=== PATIENT | female | born 1935 | race Caucasian/White ===

== ENCOUNTER 2018-01-29 09:32 | Outpatient (CLI) | payer MEDICARE, OTHER ==
[~2018-01-29] VITALS: Ht 148.6 cm; Wt 66.5 kg
[2018-01-29] MEDS ORDERED: PRAV10TA PO (09:50)
[2018-01-29] MEDS ORDERED: LATA2.5D5 OP (09:50)
[2018-01-29] MEDS ORDERED: CA C1TAB75 PO (09:50)
[2018-01-29] MEDS ORDERED: GABA-488 PO (09:50)
[2018-01-29] MEDS ORDERED: MULT-228 PO (09:50)
[2018-01-29] MEDS ORDERED: GABA-486 PO (09:50)
[2018-01-29] MEDS ORDERED: FERR-84 PO (09:50)
[2018-01-29] MEDS ORDERED: OMEP40CA36 PO (09:50)
[2018-01-29 10:27] LABS: BASOPHILS % (AUTO) 0 % (0-10); EOSINOPHILS # (AUTO) 0.1 10^3/uL (0.0-0.3); EOSINOPHILS % (AUTO) 2 % (0-10); HEMATOCRIT 44 % (35-52); HEMOGLOBIN 14.3 G/DL (11.5-16.0); LYMPHOCYTES # (AUTO) 1.2 X 10^3 (1.0-4.0); LYMPHOCYTES % (AUTO) 23 % (12-44); MEAN CORPUSCULAR HEMOGLOBIN 30 PG (25-34); MEAN CORPUSCULAR HGB CONC 32 G/DL (32-36); MEAN CORPUSCULAR VOLUME 93 FL (80-99); MEAN PLATELET VOLUME 11.3 FL (7.4-10.4); MONOCYTES # (AUTO) 0.6 X 10^3 (0.0-1.0); MONOCYTES % (AUTO) 11 % (0-12); NEUTROPHILS # (AUTO) 3.5 X 10^3 (1.8-7.8); NEUTROPHILS % (AUTO) 64 % (42-75); PLATELET COUNT 218 10^3/uL (130-400); RED BLOOD COUNT 4.73 10^6/uL (4.35-5.85); RED CELL DISTRIBUTION WIDTH 14.4 % (10.0-14.5); WHITE BLOOD COUNT 5.4 10^3/uL (4.3-11.0)
[2018-01-29 10:44] LABS: BUN/CREATININE RATIO 19; CALCIUM 9.6 MG/DL (8.5-10.1); CARBON DIOXIDE 23 MMOL/L (21-32); CHLORIDE 102 MMOL/L (98-107); GFR ESTIMATED > 60; GLUCOSE 87 MG/DL (70-105); POTASSIUM 4.2 MMOL/L (3.6-5.0); SODIUM 137 MMOL/L (135-145)
== END 2018-01-29 11:35 | disposition home or self-care (01) ==
LOC: PREOP 09:32
PROVIDERS: ATTEND Otolaryngology Otolaryngology/Facial Plastic Surgery
DX: Z01.810 Encounter for preprocedural cardiovascular examination (principal); Z01.812 Encounter for preprocedural laboratory examination; Z11.2 Encounter for screening for other bacterial diseases; T85.9XXA Unspecified complication of internal prosthetic device, implant and graft, initial encounter; Z96.22 Myringotomy tube(s) status
CPT/HCPCS: 36415; 80048; 85025; 87081; 93005

== ENCOUNTER 2018-02-05 07:23 | Day surgery (SDC) | payer MEDICARE, OTHER ==
[~2018-02-05] VITALS: Ht 148.6 cm; Wt 66.5 kg
[~2018-02-05 07:23] MED LIST: CA C1TAB75 PO; FERR-84 PO; GABA-486 PO; GABA-488 PO; LATA2.5D5 OP; MULT-228 PO; OMEP40CA36 PO; PRAV10TA PO
[2018-02-05 08:10] VITALS: BP 142/75
[2018-02-05] MEDS ORDERED: LACTATED RINGERS 1,000 ML IV PRN (08:15)
--- NOTE | 2018-02-05 08:45 | Progress Note-Pre Operative ---
Pre-Operative Progress Note H&P Reviewed The H&P was reviewed, patient examined and no changes noted. Date Seen by Provider: Feb 05, 2018 Time Seen by Provider: 08:40 Date H&P Reviewed: Feb 05, 2018 Time H&P Reviewed: 08:40 Pre-Operative Diagnosis: Chronic Right CHAIM, Left Cerumen Impaction RACHEL BYRNES MD Feb 05, 2018 8:45 am
[2018-02-05] MEDS ORDERED: ONDANSETRON 4 MG/2 ML (SDV) Z0FRAN ONE (09:09)
[2018-02-05] MEDS ORDERED: LIDOCAINE PF 2% 5 ML (XYLOCAINE) VIAL ONE (09:09)
[2018-02-05] MEDS ORDERED: proPOfol 200 MG/20 ML (DIPRIVAN) VIAL IV ONE (09:09)
[2018-02-05] MEDS ORDERED: DEXAMETHASONE 10 MG/ML (DECADRON) 1 ML VIAL ONE (09:09)
[2018-02-05] MEDS ORDERED: fentaNYL INJECTION 100 MCG/2 ML AMP ONE (09:10)
[2018-02-05] MEDS ORDERED: FAMOTIDINE 20MG/2ML IV (PEPCID) IV ONE (09:15)
[2018-02-05] MEDS ORDERED: ONDANSETRON 4 MG/2 ML (SDV) Z0FRAN IV ONE (09:15)
--- NOTE | 2018-02-05 09:54 | Progress Note-Post Operative ---
Post-Operative Progess Note Surgeon (s)/Punch Machine Operator (s) Surgeon RACHEL BYRNES MD Punch Machine Operator n/a Pre-Operative Diagnosis Chronic Right CHAIM, Left Cerumen Impaction Post-Operative Diagnosis same Post-Op Procedure Note Date of Procedure: Feb 05, 2018 Name of Procedure Performed: Right T-Tube, EUA of Left EAr with REmvoal of Cerumen iMpaction Description & Findings Description and Findings: n/a Anesthesia Type gen lma Estimated Blood Loss minimal Packing none. Specimen(s) collected/removed none RACHEL BYRNES MD Feb 05, 2018 9:54 am
[2018-02-05] MEDS ORDERED: SEVOFLURANE (ULTANE) 15 ML INHAL SOLN ONE (09:55)
[2018-02-05] MEDS ORDERED: ONDANSETRON 4 MG/2 ML (SDV) Z0FRAN IVP PRN (10:00)
[2018-02-05] MEDS ORDERED: fentaNYL INJECTION 100 MCG/2 ML AMP IVP ONE (10:00)
[2018-02-05 11:00] VITALS: BP 159/85
[2018-02-05 11:30] VITALS: BP 149/86
[2018-02-05] MEDS ORDERED: CIPR5DRO OP (11:39)
[2018-02-05 12:00] VITALS: BP 129/66
[2018-02-05 12:10] VITALS: BP 129/66
--- NOTE | 2018-02-05 16:07 | Anesthesia-General Post-Op ---
General Patient Condition Mental Status/LOC: Same as Preop Cardiovascular: Satisfactory Nausea/Vomiting: Absent Respiratory: Satisfactory Pain: Controlled Complications: Absent Post Op Complications Complications None Follow Up Care/Instructions Patient Instructions None needed. Anesthesia/Patient Condition Patient Condition Patient was seen after the surgery and she was doing well, no complaints, stable vital signs, no apparent adverse anesthesia problems. FRANCISCO VERAS DO Feb 05, 2018 16:07
== END 2018-02-05 12:10 | disposition home or self-care (01) ==
LOC: SDC 07:23
PROVIDERS: ATTEND Otolaryngology Otolaryngology/Facial Plastic Surgery
DX: H65.91 Unspecified nonsuppurative otitis media, right ear (principal); H61.22 Impacted cerumen, left ear; Z96.22 Myringotomy tube(s) status; K21.9 Gastro-esophageal reflux disease without esophagitis; E78.5 Hyperlipidemia, unspecified; Z79.899 Other long term (current) drug therapy; Z88.5 Allergy status to narcotic agent; Z88.8 Allergy status to other drugs, medicaments and biological substances; Z88.6 Allergy status to analgesic agent